=== PATIENT | male | born 2000 | race Caucasian/White ===

== ENCOUNTER 2024-03-10 08:11 | Emergency (ER) | payer OTHER ==
[~2024-03-10] VITALS: Ht 182.8 cm; Wt 86.2 kg
== END 2024-03-10 09:12 | disposition home or self-care (01) ==
LOC: ED 08:11
DX: S51.852A Open bite of left forearm, initial encounter (principal); W50.3XXA Accidental bite by another person, initial encounter; Y93.89 Activity, other specified; Y92.89 Other specified places as the place of occurrence of the external cause; Y99.0 Civilian activity done for income or pay